=== PATIENT | female | born 1995 | race African-American/Black ===

== ENCOUNTER 2016-08-24 21:13 | Observation (INO) ==
--- NOTE | 2016-08-24 22:53 | Emergency Department Note ---
Ruth Luna Hilary, am scribing for, and in the presence of, Heather Tamayo DO 22: 52. IRoni Debra, DO, personally performed the services described in this documentation, ascribed by Stephanie Miranda in my presence, and it is both accurate and complete 253 . Arrival - Arrival Chief Complaint: Abdominal / Flank Pain Stated Complaint: LRQ PAIN ED Nursing Triage Note: c/o RLQ pain that started last week. patient states it is tender to touch. + N/V Dx with UTI yesterday and also found out she is currently . patient family is estimating she is 12 weeks . LMP JUN 01 2016. Mode of Arrival: Ambulatory Limitations: No Limitations Source: Patient, Family (Mother), RN Notes Reviewed - History of Present Illness HPI Narrative: Pt is a 20 y/o female presenting to the ED with c/o abdominal pain on the RLQ which onset a week ago. Pts mother gave the history and stated that she went to the ED at [facility] yesterday and was told she had a UTI and was . Patients LMP ended JUN 01 and family estimated she is 12 weeks . No other complaints or problems stated in the ED. Onset (ago): week(s) Date of Last Menstrual Period: Jun 01 2016 Allergies/Adverse Reactions: Allergies Allergy/AdvReac Type Severity Reaction Status Date / Time No Known Allergies Allergy Unverified 08/24/16 21:31 Home Medications: Home Medications Medication Instructions Recorded Confirmed Type Nitrofurantoin Macro/[place] 100 mg PO BID 08/24/16 08/24/16 History [Macrobid] Promethazine Tab [Phenergan Tab] 25 mg PO Q6HR PRN 08/24/16 08/24/16 History Review of System - Review of System Constitutional: Absent: fever Gastrointestinal: Present: abdominal pain. Absent: nausea, vomiting Medical,Surgical,& Family Hx - Social History Smoking Status: Never smoker Frequency of Alcohol Use: None Type of Drug Use: None Exam Vital Signs: Vital Signs Temperature 98.3 F 08/24/16 21:28 Pulse Rate 72 08/24/16 21:28 Respiratory Rate 16 08/24/16 21:28 Blood Pressure 106/76 08/24/16 21:28 O2 Sat by Pulse Oximetry 97 08/24/16 21:28 - General General appearance: alert, in no apparent distress - Head Head exam: Present: atraumatic, normocephalic - Eye Eye exam: Present: normal appearance, PERRL, EOMI - ENT ENT exam: Present: mucous membranes moist, TM's normal bilaterally. Absent: mucous membranes dry - Neck Neck exam: Present: full ROM, trachea midline. Absent: tenderness - Chest Chest inspection: Present: symmetric chest wall rise. Absent: tenderness - Respiratory Respiratory exam: Present: normal lung sounds bilaterally. Absent: respiratory distress - Cardiovascular Cardiovascular exam: Present: regular rate, normal rhythm, normal heart sounds. Absent: murmur, rubs, gallop - Abdominal Exam Abdominal exam: Present: soft, tenderness at McBurney's Point (Minor tenderness) , other (Superpubic tenderness) - Extremities Exam Extremities exam: Present: full ROM. Absent: tenderness - Back Exam Back exam: Present: full ROM. Absent: tenderness - Neurological Exam Neurological exam: Present: alert, oriented X3, CN II-XII intact. Absent: motor sensory deficit - Psychiatric Psychiatric exam: Present: normal affect, normal mood - Skin Skin exam: Present: warm, dry, intact, normal color. Absent: rash Course Course Narrative: spoke with Dr Joseph who will admit pt. Results - Labs CBC & BMP: 08/24/16 22:37 08/24/16 22:37 Lab Results: I have reviewed the patients labs Labs: Laboratory Tests 08/24/16 22:37 WBC 14.9 H RBC 3.31 L Hgb 10.3 L Hct 31.1 L Lymph % (Auto) 18.3 L Neut # (Auto) 10.8 H [place] # (Auto) 1.1 H Laboratory Tests 08/24/16 22:37 Sodium 140 Creatinine 0.50 L Glucose 71 L Albumin 3.3 L Albumin/Globulin Ratio 0.9 L - Diagnostic Findings Procedure: Ultrasound: report reviewed by me (twin gestation. 10 ovarian cyst on the right. and 7 on the left. ) Disposition Clinical Impression: Twin , Ovarian cyst Case discussed with: patient, patient's family Disposition: Still a Patient Condition: Stable Time of Disposition: 01:07
[2016-08-24 22:59] LABS: Basophils % 0.3 % (0.0-0.8); Eosinophils # 0.2 10*3/uL (0.0-0.87); Eosinophils % 1.3 % (0.00-10.9); Hematocrit 31.1 VOL% (35.7-47.0); Hemoglobin 10.3 GM/DL (12.0-16.0); Immature Granulocytes % 0.5 %; Immature Granulocytes Absolute 0.08 #; Lymphocytes # 2.7 10*3/uL (1.4-4.0); Lymphocytes % 18.3 % (21.3-54.2); Mean Corpuscular HGB Conc 33.1 GM/DL (32-36); Mean Corpuscular Hemoglobin 31 PG (27-34); Mean Platelet Volume 10.7 FL (9.6-12.0); Monocytes # 1.1 10*3/uL (0.11-0.8); Monocytes % 7.6 % (1.7-12.7); Neutrophils # 10.8 10*3/uL (1.4-7.4); Platelet Count 281 T/CUMM (130-400); Red Blood Count 3.31 MC/CUMM (3.8-5.5); Red Cell Distribution Width 12.4 % (9.3-17.3); White Blood Count 14.9 T/CUMM (4-12)
[2016-08-24 23:57] LABS: Alanine Aminotransferase 13 U/L (13-56); Albumin 3.3 G/DL (3.4-5.0); Alkaline Phosphatase 46 U/L (45-117); Aspartate Amino Transferase 15 U/L (0-37); Bilirubin,Total < 0.39 MG/DL (0.2-1.0); Blood Urea Nitrogen 10 MG/DL (7-18); Calcium 8.8 MG/DL (8.5-10.1); Glucose 71 MG/DL (74-106); Osmolality,Calculated 275.4 MOS/KG (273-304); Potassium 3.6 MMOL/L (3.5-5.1); Sodium 140 MMOL/L (136-145); Total Protein 6.8 G/DL (6.4-8.3)
[2016-08-25] MEDS ORDERED: ONDANSETRON 4 MG/2 ML VIAL IV STA (00:38)
[2016-08-25] MEDS ORDERED: HYDROmorphone 2 MG/1 ML VIAL IV STA (00:38)
[2016-08-25] MEDS ORDERED: ONDANSETRON 4 MG/2 ML VIAL ONE (00:47)
[2016-08-25] MEDS ORDERED: HYDROmorphone 2 MG/1 ML VIAL ONE (00:48)
[2016-08-25] MEDS ORDERED: ONDANSETRON 4 MG/2 ML VIAL IV PRN (01:07)
[2016-08-25] MEDS ORDERED: ACETAMINOPHEN 325 MG TABLET PO PRN (01:07)
[2016-08-25] MEDS ORDERED: MAGNESIUM HYDROXIDE SUSP 30 ML UDCUP PO PRN (01:07)
[2016-08-25] MEDS ORDERED: BISACODYL 10 MG SUPP RECTAL PRN (01:07)
[2016-08-25] MEDS ORDERED: IBUPROFEN 800 MG TABLET PO PRN (01:07)
[2016-08-25] MEDS: LACTATED RINGERS 1,000 ML IV SCH ×2 (02:15→10:00)
[2016-08-25] MEDS ORDERED: HYDROmorphone 2 MG/1 ML VIAL IV SCH (05:00)
--- NOTE | 2016-08-25 07:37 | Ultrasound Report ---
US OB <= 14 weeks fetus Indication: Pain Findings: Uterus is 10.2 cm in length. Gestational sac is present with twin intrauterine gestations, pole measurements estimating age at 12 weeks 6 days for twin A and 12 weeks 6 days for twin B. heart rate is 199 bpm for twin A and twin B 172 beats per minute. No abnormality is visualized around the gestational sac. Amniotic fluid volume appears within normal limits for age. Multiple images show membrane and/or amniotic band around the head of twin A. Placenta detail is limited. The ovaries have multiple cysts. No free fluid is seen. Impression: Twin intrauterine gestation estimated age 12 weeks 6 days. There is membrane or amniotic band with appearance of entrapment of the head of the twin A. Polycystic ovaries. PROCEDURE INTERPRETED AT [facility] DEPARTMENT OF RADIOLOGY Final Report Signed by: Dr. Emmett Cho
[2016-08-25] MEDS ORDERED: HYDROmorphone 2 MG/1 ML VIAL IV PRN (08:35)
[2016-08-25] MEDS ORDERED: DOCUSATE SODIUM 100 MG CAPSULE PO SCH (09:00)
--- NOTE | 2016-08-25 10:37 | OB/GYN History & Physical ---
History of Present Illness Chief complaint: RLQ pain History of present illness: Ms. Felipe is a 20 year old female at 13 weeks by u/s done last night with twins. I was called by ER physician here at [facility] early this morning and informed that the u/s showed that one of the twins has an amniotic band around its neck and the patient has 2 large ovarian cysts. Pt was seen in the [place] ER yesteday and diagnosed with a twin gestation. Pt had been in denial about being prior and had not yet been seen. Reports that she went to the ER because she was having worsening abdominal discomfort. Discomfort started ~ 1 week ago. When I reviewed both the u/s from [place] and our hospital this morning, neither of them speak of large ovarian cysts. Report from here refers to "polycystic ovaries", largest cyst 3 cm. Pt is otherwise healthy without medical or surgical history. Discussed with her and her mother my concern about ovarian cysts, the role corpus luteum plays in early and the amniotic band noted with one of the twins. In light of all of these findings, I think it best for the pt to be evaluated by MFM in [place]. They are amenable. Currently awaiting a call back from Dr. Looney in the MFM group at [facility]. I called to attempt to clarify cysts on u/s report, I was told by Dr. Cho who read the report that "I don't see that" when I asked about large ovarian cysts. Home Medications Medication Instructions Recorded Confirmed Type Nitrofurantoin Macro/[place] 100 mg PO BID 08/24/16 08/24/16 History [Macrobid] Promethazine Tab [Phenergan Tab] 25 mg PO Q6HR PRN 08/24/16 08/24/16 History Allergies Allergy/AdvReac Type Severity Reaction Status Date / Time No Known Allergies Allergy Unverified 08/24/16 21:31 Medical,Surgical,& Family Hx - Family History Family History: Reports;: Family Diabetes (father), Family Hypertension (father) Denies;: Family Anesthesia Reaction, Family Cancer, Family Heart Disease, Family Hematology, Family Psychiatric Problems, Family Stroke, Additional Family History - Social History Smoking Status: Never smoker Frequency of Alcohol Use: None 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 Absent: tenderness, rebound Assessment and Plan (1) Amniotic band in first trimester Status: Acute Assessment and plan: Awaiting phone call from [facility] for recommendations regarding f/u Current Visit: Yes (2) Twin Status: Acute Current Visit: Yes (3) Ovarian cyst Status: Acute Current Visit: Yes Results - Labs CBC & BMP: 08/24/16 22:37 08/24/16 22:37
--- NOTE | 2016-08-25 13:58 | OB/GYN Progress Note ---
Assessment and Plan (1) Amniotic band in first trimester Status: Acute Assessment and plan: Spoke with Dr. 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 Awakened to let her know that I spoke to both Dr. Lester Looney and the Accepting OB physician at [facility] . Explained her story and she is to be transported via ambulance to [facility] which is directly across the street from the [facility] office. Exam COMMUNITY DIETITIAN - Constitutional Vitals: Vital Signs Temp Pulse Pulse Resp BP Pulse Ox Pulse Ox 08/25/16 12:00 97.8 F 71 20 122/73 99 08/25/16 11:35 97.5 F L 86 18 122/73 99 08/25/16 08:00 97.5 F L 62 16 113/74 100 08/25/16 07:18 97.5 F L 62 16 113/74 100 08/25/16 06:00 18 08/25/16 04:00 97.1 F L 68 18 99/58 100 08/25/16 02:02 96.4 F L 60 18 123/81 98 08/25/16 01:30 68 18 111/63 100 Results - Labs CBC & BMP: 08/24/16 22:37 08/24/16 22:37
[2016-08-25 15:59] VITALS: BP 113/68
== END 2016-08-25 16:10 | disposition hospice, home (50) ==
LOC: N.ED 21:13 → N.EDINP 21:13 → N.OB 08-25 01:45
PROVIDERS: ADMIT Obstetrics & Gynecology; ATTEND Obstetrics & Gynecology